=== PATIENT | male | born 2000 ===

== ENCOUNTER 2020-07-07 21:04 | Emergency (ER) | payer SELFPAY ==
[~2020-07-07] VITALS: Ht 185.4 cm; Wt 78.1 kg
[2020-07-07 21:04] VITALS: BP 136/83
[2020-07-07] MEDS ORDERED: BENA25CA4 PO (21:11)
== END 2020-07-07 22:33 | disposition left against medical advice (07) ==
LOC: M ED 21:04
DX: Z53.21 Procedure and treatment not carried out due to patient leaving prior to being seen by health care provider (principal)